=== PATIENT | female | born 1975 | race African-American/Black ===

== ENCOUNTER 2022-06-13 11:17 | Emergency (ER) | payer OTHER ==
[~2022-06-13] VITALS: Ht 172.7 cm; Wt 95.0 kg
[2022-06-13 11:29] VITALS: BP 116/75
[2022-06-13] MEDS ORDERED: ONDANSETRON HCL 4MG/2ML INJ IM ONE (12:30)
[2022-06-13 12:44] LABS: CLARITY URINE CLOUDY (CLEAR); COLOR URINE DARK YELLOW (YELLOW); KETONES URINE 1+ (NEGATIVE); LEUKOCYTE ESTERASE URINE NEGATIVE (NEGATIVE); NITRITE URINE NEGATIVE (NEGATIVE); OCCULT BLOOD URINE NEGATIVE (NEGATIVE); PH URINE 5.5 (4.5-8.0); PROTEIN URINE TRACE (NEGATIVE)
[2022-06-13 14:02] LABS: HEMATOCRIT. 42.4 % (36.0-48.0); MEAN CORPUSCULAR HEMOGLOBIN 30.8 pg (28.0-32.0); MEAN CORPUSCULAR VOLUME 93.4 fL (81.0-99.0); MEAN PLATELET VOLUME 9.2 fl (7.4-10.4); PLATELET 230 x1000/uL (130-400); RED BLOOD CELL COUNT 4.54 mill/uL (4.2-5.4); RED CELL DISTRIBUTION WIDTH 13.5 % (11.6-14.6)
[2022-06-13 14:05] LABS: CHLORIDE 104 mEq/L (98-107)
[2022-06-13] MEDS ORDERED: NITR-87 MT ×3 (14:17→14:36)
[2022-06-13] MEDS ORDERED: ONDA4TAB11 PO ×3 (14:25→14:36)
[2022-06-13] MEDS ORDERED: ACET-2708 MT ×3 (14:26→14:36)
[2022-06-13 15:05] LABS: ATYPICAL LYMPHOCYTES 1
[2022-06-13 15:06] LABS: PLATELET ESTIMATE NORMAL
== END 2022-06-13 14:39 | disposition home or self-care (01) ==
LOC: ER 11:17
DX: R82.71 Bacteriuria (principal); R53.1 Weakness; Z20.822 Contact with and (suspected) exposure to COVID-19
CPT/HCPCS: 36415; 71045; 80053; 81003; 81025; 83690; 85025; 87426; 93005; 96372; 99285; J2405